=== PATIENT | male | born 1965 | race African-American/Black ===

== ENCOUNTER 2023-01-21 11:33 | Inpatient (IN) | payer MEDICAID, MEDICARE ==
[~2023-01-21] VITALS: Ht 175.3 cm; Wt 127.1 kg
[2023-01-21] MEDS ORDERED: SODIUM CHLORIDE 0.9% 1,000 ML IV ONE (12:00)
[2023-01-21 12:21] LABS: Basophils # (auto) 0 10 ^3/uL (0-0.2); Basophils % (auto) 0.8 % (0.0-2.0); Eosinophils # (auto) 0.2 10 ^3/uL (0-0.8); Eosinophils % (auto) 3.2 % (0.0-7.0); Hemoglobin 15.7 g/dL (13.5-17.5); Lymphocytes # (auto) 1.3 10 ^3/uL (0.4-5.4); Lymphocytes % (auto) 27.6 % (10.0-50.0); Mean Corpuscular Hgb Conc. 33.5 g/dL (32.0-36.0); Mean Corpuscular Volume 95.4 fL (80.0-100.0); Monocytes # (auto) 0.5 10 ^3/uL (0-1.3); Monocytes % (auto) 9.9 % (0.0-12.0); Neutrophils # (auto) 2.7 10 ^3/uL (1.6-8.6); Neutrophils % (auto) 58.5 % (37.0-80.0); Nucleated Red Blood Cells % 0.1 %; Red Blood Cells 4.92 10^6/uL (4.5-5.90); Red Cell Distribution Width 13.8 % (11.8-14.3); White Blood Cell 4.7 10^3/uL (4.4-10.8)
[2023-01-21 12:47] LABS: Albumin 3.3 g/dL (3.4-5.0); Calcium 8.8 mg/dL (8.5-10.1); Potassium 4.1 mmol/L (3.5-5.1)
[2023-01-21 12:50] LABS: BUN/Creatinine Ratio 12.8 (10.0-20.0); Bilirubin, Total 0.3 mg/dL (0.2-1.0); Total Protein 7.6 g/dL (6.4-8.2)
[2023-01-21] MEDS ORDERED: InsuLIN REG 1unit/0.01ml Soln (100units/ml) IV ONE (13:15)
[2023-01-21 14:51] LABS: Urine Bacteria NONE SEEN /hpf (None Seen); Urine Blood Negative /uL (Negative); Urine Clarity Clear (Clear); Urine Protein, UAD Negative (Negative); Urine Urobilinogen Normal (Negative); Urine WBC <1 /hpf (0 - 3); Urine pH 6.5 (5.0-8.0)
[2023-01-21 14:53] LABS: Urine Color Yellow (Yellow)
[2023-01-21] MEDS: SODIUM CHLORIDE 0.9% 1,000 ML IV SCH (16:15)
[2023-01-21] MEDS ORDERED: SODIUM CHLORIDE 0.9% 2,000 ML IV ONE (16:15)
[2023-01-21] MEDS ORDERED: DEXTROSE (50%) 50ML SYRG IV PRN ×2 (16:15→23:30)
[2023-01-21] MEDS ORDERED: ONDANSETRON HCL 4 MG/2 ML VIAL IV PRN (16:15)
[2023-01-21] MEDS ORDERED: INSULIN LANTUS (GLARGINE) 1 /0.01ml (100units/ml) SC ONE (16:15)
[2023-01-21] MEDS: InsuLIN R (HUMAN) 100 UNITS in SODIUM CHL 0.9% 99 ML IV SCH (16:15)
[2023-01-21 16:50] LABS: Magnesium 2.4 mg/dL (1.6-2.6); Phosphorus 3.3 mg/dL (2.5-4.90)
[2023-01-21 18:11] LABS: INR 1.02 (0.9-1.15); Prothrombin Time 10.7 sec (9.3-11.8)
[2023-01-21] MEDS: ACCU-CHEK COMFORT CURVE STRIP VI SCH ×2 (18:12→22:56)
[2023-01-21 22:33] LABS: BUN/Creatinine Ratio 12.5 (10.0-20.0); Calcium 8.4 mg/dL (8.5-10.1); Potassium 3.8 mmol/L (3.5-5.1)
[2023-01-21] MEDS: APIXABAN 5 MG TAB PO SCH (23:13)
[2023-01-22] MEDS: SODIUM CHLORIDE 0.9% 1,000 ML IV SCH ×3 (00:35→18:43)
[2023-01-22] MEDS: InsuLIN REG 1unit/0.01ml Soln (100units/ml) SC SCH ×5 (00:36→23:50)
[2023-01-22 04:30] VITALS: PULSE 62; RESP 18; O2SAT 98
[2023-01-22 04:53] LABS: Basophils # (auto) 0.1 10 ^3/uL (0-0.2); Basophils % (auto) 0.9 % (0.0-2.0); Eosinophils # (auto) 0.2 10 ^3/uL (0-0.8); Eosinophils % (auto) 3.4 % (0.0-7.0); Hematocrit 44.6 % (41.0-53.0); Hemoglobin 15.2 g/dL (13.5-17.5); Lymphocytes # (auto) 1.7 10 ^3/uL (0.4-5.4); Lymphocytes % (auto) 28.3 % (10.0-50.0); Mean Corpuscular Hemoglobin 32.2 pg (28.0-32.0); Mean Corpuscular Volume 94.8 fL (80.0-100.0); Monocytes # (auto) 0.6 10 ^3/uL (0-1.3); Monocytes % (auto) 10.8 % (0.0-12.0); Neutrophils # (auto) 3.4 10 ^3/uL (1.6-8.6); Neutrophils % (auto) 56.6 % (37.0-80.0); Nucleated Red Blood Cells % 0.3 %; Red Blood Cells 4.71 10^6/uL (4.5-5.90); Red Cell Distribution Width 13.7 % (11.8-14.3); White Blood Cell 5.9 10^3/uL (4.4-10.8)
[2023-01-22 05:06] LABS: Calcium 8.8 mg/dL (8.5-10.1); Potassium 3.6 mmol/L (3.5-5.1)
[2023-01-22 05:09] LABS: BUN/Creatinine Ratio 13.4 (10.0-20.0); Bilirubin, Total 0.4 mg/dL (0.2-1.0); Total Protein 6.9 g/dL (6.4-8.2)
[2023-01-22] MEDS: ACCU-CHEK COMFORT CURVE STRIP VI SCH ×4 (07:18→23:51)
[2023-01-22 11:08] LABS: Calcium 8.9 mg/dL (8.5-10.1); Potassium 3.8 mmol/L (3.5-5.1)
[2023-01-22 11:10] LABS: BUN/Creatinine Ratio 14.6 (10.0-20.0)
[2023-01-22 12:03] VITALS: BP 147/99; PULSE 61; RESP 18; TEMP 98.1; O2SAT 94
[2023-01-22 12:30] VITALS: RESP 18; O2SAT 94
[2023-01-22] MEDS: APIXABAN 5 MG TAB PO SCH ×2 (12:58→23:51)
[2023-01-22] MEDS: INSULIN LANTUS (GLARGINE) 1 /0.01ml (100units/ml) SC SCH (13:02)
[2023-01-22 16:00] VITALS: BP 145/81; PULSE 62; RESP 18; TEMP 98.1; O2SAT 98
[2023-01-22] MEDS: InsuLIN R (HUMAN) 100 UNITS in SODIUM CHL 0.9% 99 ML IV SCH (16:15)
[2023-01-22] MEDS: TAMSULOSIN HYDROCHLORIDE 0.4 MG CAP PO SCH (18:41)
[2023-01-22 20:00] VITALS: PULSE 61; RESP 18; O2SAT 97
[2023-01-22 22:00] VITALS: BP 133/80; PULSE 61; RESP 18; TEMP 98.4; O2SAT 97
[2023-01-22 22:36] LABS: Calcium 8.4 mg/dL (8.5-10.1); Potassium 3.8 mmol/L (3.5-5.1)
[2023-01-22] MEDS: MORPHINE SULFATE INJ 2 MG/ml SYRG IV PRN (23:50)
[2023-01-23] VITALS (8 sets, daily range): BP systolic 102–160; BP diastolic 59–85; PULSE 60–69; RESP 17–20; TEMP 97.4–98.6; O2SAT 93–98
[2023-01-23] MEDS ORDERED: MELATONIN 5 MG TAB PO ONE (02:15)
[2023-01-23] MEDS ORDERED: CHOL20007 OR (03:56)
[2023-01-23] MEDS ORDERED: APIX5TAB PO (03:56)
[2023-01-23] MEDS ORDERED: ALOG2.5T PO (03:56)
[2023-01-23] MEDS ORDERED: INSU1INJ3 SC (03:56)
[2023-01-23] MEDS ORDERED: ESCI1TAB36 PO (03:56)
[2023-01-23] MEDS ORDERED: GABA-1308 PO (03:56)
[2023-01-23] MEDS ORDERED: ATOR20TA50 PO (03:56)
[2023-01-23] MEDS ORDERED: HYDR25TA4 PO (03:56)
[2023-01-23] MEDS ORDERED: TAMS0.4C36 PO (03:56)
[2023-01-23] MEDS ORDERED: EMPA1TAB3 PO (03:56)
[2023-01-23 05:00] LABS: Basophils # (auto) 0.1 10 ^3/uL (0-0.2); Basophils % (auto) 2.9 % (0.0-2.0); Eosinophils # (auto) 0.2 10 ^3/uL (0-0.8); Eosinophils % (auto) 4.9 % (0.0-7.0); Hematocrit 45.7 % (41.0-53.0); Hemoglobin 15.3 g/dL (13.5-17.5); Lymphocytes # (auto) 1.5 10 ^3/uL (0.4-5.4); Lymphocytes % (auto) 29.8 % (10.0-50.0); Mean Corpuscular Hemoglobin 31.6 pg (28.0-32.0); Mean Corpuscular Hgb Conc. 33.4 g/dL (32.0-36.0); Mean Corpuscular Volume 94.5 fL (80.0-100.0); Monocytes # (auto) 0.5 10 ^3/uL (0-1.3); Monocytes % (auto) 9.5 % (0.0-12.0); Neutrophils # (auto) 2.7 10 ^3/uL (1.6-8.6); Neutrophils % (auto) 52.9 % (37.0-80.0); Nucleated Red Blood Cells % 0.1 %; Red Blood Cells 4.84 10^6/uL (4.5-5.90); Red Cell Distribution Width 13.9 % (11.8-14.3); White Blood Cell 5.1 10^3/uL (4.4-10.8)
[2023-01-23 05:21] LABS: Potassium 4.2 mmol/L (3.5-5.1)
[2023-01-23 05:25] LABS: BUN/Creatinine Ratio 15.2 (10.0-20.0)
[2023-01-23] MEDS: ACCU-CHEK COMFORT CURVE STRIP VI SCH ×4 (06:49→21:53)
[2023-01-23] MEDS: InsuLIN REG 1unit/0.01ml Soln (100units/ml) SC SCH ×4 (06:49→21:50)
[2023-01-23] MEDS: FLUoxetine HCL 10 MG CAP PO SCH (09:17)
[2023-01-23] MEDS: APIXABAN 5 MG TAB PO SCH ×2 (09:17→21:04)
[2023-01-23] MEDS: INSULIN LANTUS (GLARGINE) 1 /0.01ml (100units/ml) SC SCH (09:26)
[2023-01-23 10:33] LABS: BUN/Creatinine Ratio 12.7 (10.0-20.0); Calcium 8.6 mg/dL (8.5-10.1); Potassium 3.9 mmol/L (3.5-5.1)
[2023-01-23] MEDS: SODIUM CHLORIDE 0.9% 1,000 ML IV SCH ×2 (11:16→19:03)
[2023-01-23] MEDS: MORPHINE SULFATE INJ 2 MG/ml SYRG IV PRN ×2 (13:46→21:05)
[2023-01-23] MEDS: InsuLIN R (HUMAN) 100 UNITS in SODIUM CHL 0.9% 99 ML IV SCH (15:52)
[2023-01-23] MEDS: TAMSULOSIN HYDROCHLORIDE 0.4 MG CAP PO SCH (17:05)
[2023-01-24] MEDS: SODIUM CHLORIDE 0.9% 1,000 ML IV SCH ×3 (02:32→17:59)
[2023-01-24 04:56] VITALS: BP 147/81; PULSE 63; RESP 18; TEMP 97.8; O2SAT 97
[2023-01-24] MEDS: ACCU-CHEK COMFORT CURVE STRIP VI SCH ×4 (06:29→21:13)
[2023-01-24] MEDS: InsuLIN REG 1unit/0.01ml Soln (100units/ml) SC SCH ×4 (06:32→21:12)
[2023-01-24 07:07] LABS: Basophils # (auto) 0.1 10 ^3/uL (0-0.2); Basophils % (auto) 1.1 % (0.0-2.0); Eosinophils # (auto) 0.2 10 ^3/uL (0-0.8); Hematocrit 43.4 % (41.0-53.0); Hemoglobin 14.8 g/dL (13.5-17.5); Lymphocytes # (auto) 1.5 10 ^3/uL (0.4-5.4); Lymphocytes % (auto) 26.9 % (10.0-50.0); Mean Corpuscular Hemoglobin 32.7 pg (28.0-32.0); Mean Corpuscular Hgb Conc. 34.1 g/dL (32.0-36.0); Mean Corpuscular Volume 95.9 fL (80.0-100.0); Monocytes # (auto) 0.6 10 ^3/uL (0-1.3); Monocytes % (auto) 9.7 % (0.0-12.0); Neutrophils # (auto) 3.3 10 ^3/uL (1.6-8.6); Neutrophils % (auto) 58.3 % (37.0-80.0); Nucleated Red Blood Cells % 0.2 %; Red Blood Cells 4.52 10^6/uL (4.5-5.90); Red Cell Distribution Width 13.8 % (11.8-14.3); White Blood Cell 5.7 10^3/uL (4.4-10.8)
[2023-01-24 07:29] LABS: BUN/Creatinine Ratio 13.4 (10.0-20.0); Calcium 8.3 mg/dL (8.5-10.1); Potassium 4.3 mmol/L (3.5-5.1)
[2023-01-24 08:00] VITALS: BP 141/80; PULSE 66; RESP 18; TEMP 97.9; O2SAT 96
[2023-01-24] MEDS: APIXABAN 5 MG TAB PO SCH ×2 (10:21→21:13)
[2023-01-24] MEDS: FLUoxetine HCL 10 MG CAP PO SCH (10:21)
[2023-01-24] MEDS: INSULIN LANTUS (GLARGINE) 1 /0.01ml (100units/ml) SC SCH ×2 (10:23→21:12)
[2023-01-24 12:00] VITALS: BP 145/83; PULSE 68; RESP 20; TEMP 98; O2SAT 97
[2023-01-24 13:46] LABS: Urine Bacteria NONE SEEN /hpf (None Seen); Urine Blood Negative /uL (Negative); Urine Clarity Clear (Clear); Urine Color Colorless (Yellow); Urine Protein, UAD Negative (Negative); Urine Specific Gravity 1.011 (1.001-1.035); Urine Urobilinogen Normal (Negative); Urine WBC <1 /hpf (0 - 3)
[2023-01-24 16:00] VITALS: BP 144/65; PULSE 83; RESP 18; TEMP 97.8; O2SAT 94
[2023-01-24] MEDS: InsuLIN R (HUMAN) 100 UNITS in SODIUM CHL 0.9% 99 ML IV SCH (16:15)
[2023-01-24] MEDS: DOCUSATE SOD 100 MG CAP PO SCH (16:44)
[2023-01-24] MEDS: TAMSULOSIN HYDROCHLORIDE 0.4 MG CAP PO SCH (16:44)
[2023-01-24] MEDS: MORPHINE SULFATE INJ 2 MG/ml SYRG IV PRN ×2 (16:47→20:52)
[2023-01-24 20:02] VITALS: RESP 18
[2023-01-24 22:00] VITALS: BP 124/67; PULSE 60; RESP 16; TEMP 98.4; O2SAT 97
[2023-01-25] MEDS: SODIUM CHLORIDE 0.9% 1,000 ML IV SCH ×2 (03:52→11:55)
[2023-01-25 05:00] VITALS: BP 141/73; PULSE 62; RESP 14; TEMP 98.4; O2SAT 94
[2023-01-25] MEDS: ACCU-CHEK COMFORT CURVE STRIP VI SCH ×3 (06:22→17:00)
[2023-01-25] MEDS: InsuLIN REG 1unit/0.01ml Soln (100units/ml) SC SCH ×3 (06:23→17:00)
[2023-01-25 06:25] LABS: Basophils # (auto) 0.1 10 ^3/uL (0-0.2); Eosinophils # (auto) 0.3 10 ^3/uL (0-0.8); Eosinophils % (auto) 4.4 % (0.0-7.0); Hematocrit 44.1 % (41.0-53.0); Hemoglobin 14.6 g/dL (13.5-17.5); Lymphocytes # (auto) 1.5 10 ^3/uL (0.4-5.4); Lymphocytes % (auto) 26.7 % (10.0-50.0); Mean Corpuscular Hgb Conc. 33.2 g/dL (32.0-36.0); Mean Corpuscular Volume 96.5 fL (80.0-100.0); Monocytes # (auto) 0.7 10 ^3/uL (0-1.3); Monocytes % (auto) 12.4 % (0.0-12.0); Neutrophils # (auto) 3.2 10 ^3/uL (1.6-8.6); Neutrophils % (auto) 55.5 % (37.0-80.0); Nucleated Red Blood Cells % 0.1 %; Red Blood Cells 4.57 10^6/uL (4.5-5.90); White Blood Cell 5.7 10^3/uL (4.4-10.8)
[2023-01-25 06:48] LABS: BUN/Creatinine Ratio 12.9 (10.0-20.0); Calcium 8.3 mg/dL (8.5-10.1); Potassium 3.4 mmol/L (3.5-5.1)
[2023-01-25 08:00] VITALS: RESP 18
[2023-01-25] MEDS ORDERED: POTASSIUM EFFERVESENT TAB 25 MEQ PO ONE (08:45)
[2023-01-25] MEDS: APIXABAN 5 MG TAB PO SCH (08:52)
[2023-01-25] MEDS: DOCUSATE SOD 100 MG CAP PO SCH (08:52)
[2023-01-25] MEDS: FLUoxetine HCL 10 MG CAP PO SCH (08:52)
[2023-01-25] MEDS: INSULIN LANTUS (GLARGINE) 1 /0.01ml (100units/ml) SC SCH (08:58)
[2023-01-25 09:16] VITALS: BP 158/81; PULSE 65; RESP 18; TEMP 97.5; O2SAT 95
[2023-01-25 13:10] VITALS: BP 133/80; PULSE 51; RESP 18; TEMP 97.1; O2SAT 95
[2023-01-25] MEDS ORDERED: INSU1INJ3 SC (15:26)
[2023-01-25] MEDS ORDERED: DOCUSATE SOD 100 MG CAP PO SCH (17:00)
== END 2023-01-25 17:20 | disposition home or self-care (01) | DRG 420 ==
LOC: ER 11:33 → OVERFLOW 15:17 → WEST WING 01-22 11:28
PROVIDERS: ADMIT Internal Medicine; ATTEND Student in an Organized Health Care Education/Training Program
DX: E11.65 Type 2 diabetes mellitus with hyperglycemia (principal); E44.1 Mild protein-calorie malnutrition; E11.22 Type 2 diabetes mellitus with diabetic chronic kidney disease; I82.503 Chronic embolism and thrombosis of unspecified deep veins of lower extremity, bilateral; Z68.41 Body mass index [BMI] 40.0-44.9, adult; N40.0 Benign prostatic hyperplasia without lower urinary tract symptoms; R82.4 Acetonuria; N18.9 Chronic kidney disease, unspecified; H54.61 Unqualified visual loss, right eye, normal vision left eye; F32.A Depression, unspecified; F17.210 Nicotine dependence, cigarettes, uncomplicated; E66.01 Morbid (severe) obesity due to excess calories; K59.00 Constipation, unspecified; Z79.01 Long term (current) use of anticoagulants; Z91.199 Patient's noncompliance with other medical treatment and regimen due to unspecified reason
CPT/HCPCS: 36415; 80048; 80053; 81001; 82010; 82962; 83735; 83930; 84100; 85025; 85610; 96361; 96374; G0378; J1815; J2405

== ENCOUNTER 2024-05-23 11:41 | Inpatient (IN) | payer OTHER, MEDICAID ==
[~2024-05-23] VITALS: Ht 175.3 cm; Wt 131.4 kg
[~2024-05-23 11:41] MED LIST: ALOG2.5T PO; APIX5TAB PO; ATOR20TA50 PO; CHOL20007 OR; EMPA1TAB3 PO; ESCI1TAB36 PO; GABA-1308 PO; HYDR25TA4 PO; INSU1INJ3 SC; TAMS0.4C39 PO
--- NOTE | 2024-05-23 12:40 | ED.PDOC ---
History of Present Illness HPI Comments 58 y/o M presents with c/o right-sided numbness, generalized weakness, cough, and HTN, today. Patient is a poor historian and endorses on recent, unprovoked onset of symptoms in addition to noticing his blood pressure being elevated at home, today. Patient comments also medication refill inquiry regarding concern for his blood glucose level and his insulin medication, that he states on running out of. Patient denies having any chest pain, shortness of breath, weakness, dizziness, or other associated symptoms or modifies at this time. Chief Complaint: Dizziness Time Seen by MD: 12:10 Primary Care Provider: ALVARADO Reviewed Notes: Nurses Notes, Medications, Allergies Allergies: Coded Allergies: No Known Drug Allergy (Verified Allergy, Unknown, 01/21/23) Home Meds Active Scripts Insulin NPH Isophane & Reg (Hu (Humulin 70/30 Kwikpen (70-30) 100 Unit/ml) 1 Inj Inj, 20 UNITS SC BID for 30 Days, #60 INJ 5 Refills Prov:IZABELLA ARCOS MD 01/25/23 Reported Medications Cholecalciferol (VITAMIN D3) 2,000 Unit Tab, 2000 UNIT OR DAILY, TAB 01/23/23 Apixaban Base (ELIQUIS) 5 Mg Tab, 5 MG PO BID, TAB 01/23/23 Gabapentin (Gabapentin) 100 Mg Cap, 100 MG PO TID 01/23/23 Empagliflozin (Jardiance) 25 Mg Tab, 25 MG PO DAILY, TAB 01/23/23 Hydrochlorothiazide (Hydrochlorothiazide) 25 Mg Tab, 25 MG PO DAILY, MG 01/23/23 Atorvastatin Calcium (ATORVASTATIN CALCIUM) 20 Mg Tab, 20 MG PO DAILY, TAB 01/23/23 Tamsulosin Hcl (Tamsulosin Hcl) 0.4 Mg Cap, 0.4 MG PO DAILY for 30 Days, MG 01/23/23 Alogliptin Benzoate (Alogliptin) 12.5 Mg Tab, 12.5 MG PO BID, TAB 01/23/23 Escitalopram Oxalate (ESCITALOPRAM OXALATE) 10 Mg Tab, 10 MG PO DAILY, TAB 01/23/23 Information Source: Patient Mode of Arrival: Ambulatory Severity: Moderate Timing: Days Duration: Since onset Prehospital treatment: None Past Medical History PAST MEDICAL HISTORY: DM, HTN Past Medical History (Other): morbid obesity Surgical History: Denies all surgeries Family History Family History: Reviewed,noncontributory to illness, Family hx of heart sindhu Social History Smoker: Cigarettes Alcohol: Occasionally Drugs: Marijuana Lives In: Home Respiratory: reports: cough Neurological: reports: numbness (right-sided ), weakness All Other Systems: Reviewed and Negative (negative unless otherwise stated in HPI) Physical Exam General Appearance: Moderate Distress, Obese HEENT: Normal ENT Inspection, Pharynx Normal, TMs Normal Neck: Full Range of Motion, Non-Tender, Normal, Normal Inspection Respiratory: Other (Coarse breath sounds) Cardiovascular: No Edema, No JVD, No Murmur, No Gallop, Normal Peripheral Pulses, Regular Rate/Rhythm Breast Exam: Deferred Gastrointestinal: No Organomegaly, Non Tender, No Pulsatile Mass, Normal Bowel Sounds, Soft Genitalia: Deferred Pelvic: Deferred Rectal: Deferred Extremities: Pedal edema Musculoskeletal : Apperance: Normal Neurologic: Alert Cerebellar Function: NOT DONE Reflexes: NOT DONE Skin: Normal Color Peripheral Pulses: 3+ Radial (R), 3+ Radial (L) Lymphatic: No Adenopathy Was a procedure done? Was a procedure done?: No Differential Dx Considerations may include: uncontrolled HTN, inappropriate medication dosage, electrolyte imbalance, dehydration X-Ray, Labs, Meds, VS Vital Signs Date Time Temp Pulse Resp B/P (MAP) Pulse Ox O2 Delivery O2 Flow Rate FiO2 05/23/24 12:28 99.1 116 18 140/85 (103) 94 05/23/24 12:18 117 Lab Test 05/23/24 13:09 05/23/24 12:18 05/23/24 12:17 05/23/24 12:16 Range/Units Urine Color Light-yellow Yellow Urine Clarity Clear Clear Urine pH 5.5 5.0-9.0 Urine Specific [place] 1.032 1.001-1.035 Urine Protein Trace H Negative Urine Ketones Trace Negative Urine Blood Negative Negative /uL Urine Nitrite Negative Negative Urine Bilirubin Negative Negative Urine Urobilinogen Normal Negative mg/dL Urine Leukocyte Esterase Negative Negative /uL Urine RBC 1 0 - 3 /hpf Urine WBC <1 0 - 3 /hpf Urine Squamous Epithelial Cells Few <5 /hpf Urine Bacteria None seen None Seen /hpf Urine Glucose 4+ H Normal mg/dL POC Glucose 482 *H 451 *H 70-106 mg/dl White Blood Count 6.2 4.4-10.8 10^3/uL Red Blood Count 5.17 4.5-5.90 10^6/uL Hemoglobin 17.0 13.5-17.5 g/dL Hematocrit 49.3 41.0-53.0 % Mean Corpuscular Volume 95.4 80.0-100.0 fL Mean Corpuscular Hemoglobin 32.8 H 28.0-32.0 pg Mean Corpuscular Hemoglobin Concent 34.4 32.0-36.0 g/dL Red Cell Distribution Width 14.6 H 11.8-14.3 % Platelet Count 258 140-450 10^3/uL Mean Platelet Volume 8.5 6.9-10.8 fL Neutrophils (%) (Auto) 60.7 37.0-80.0 % Lymphocytes (%) (Auto) 18.7 10.0-50.0 % Monocytes (%) (Auto) 16.4 H 0.0-12.0 % Eosinophils (%) (Auto) 3.4 0.0-7.0 % Basophils (%) (Auto) 0.8 0.0-2.0 % Neutrophils # (Auto) 3.7 1.6-8.6 10 ^3/uL Lymphocytes # (Auto) 1.2 0.4-5.4 10 ^3/uL Monocytes # (Auto) 1.0 0-1.3 10 ^3/uL Eosinophils # (Auto) 0.2 0-0.8 10 ^3/uL Basophils # (Auto) 0 0-0.2 10 ^3/uL Nucleated Red Blood Cells 0.1 % Sodium Level 133 L 136-145 mmol/L Potassium Level 4.5 3.5-5.1 mmol/L Chloride Level 99 98-107 mmol/L Carbon Dioxide Level 26 20-31 mmol/L Anion Gap 8 5-15 Blood Urea Nitrogen 14 9-23 mg/dL Creatinine 1.63 H 0.700-1.30 mg/dL Glomerular Filtration Rate Calc 48 >90 mL/min BUN/Creatinine Ratio 8.6 L 10.0-20.0 Serum Glucose 472 *H 74-106 mg/dL Calcium Level 10.1 8.7-10.4 mg/dL Troponin I High Sensitivity 10 </=54 ng/L B-Type Natriuretic Peptide 40.57 0-100 pg/mL Patient alert. Complaining of right-sided weakness. Vitals stable. Answering all questions. Blood sugar elevated. Establish intravenous access. Was given fluids. He is tachycardic. EKG reviewed does not show any acute changes. Was given insulin. Reviewed his previous visit. Explained to the patient. Continue cardiac monitoring. [facility] [id number] [facility] [address] Ph: [phone] DIAGNOSTIC IMAGING Diagnostic Imaging Report : [id number] Signed PATIENT: AILEEN ARAMBULA ACCT: [id number] UNIT: [id number] : 1965 LOC: ER ROOM / BED: / AGE / SEX: 58 / M ADM STATUS: REG ER SERVICE 12 ORDERING PHYSICIAN: JOSIAH ZELAYA MD PROCEDURE(s): CXRP - CHEST PORTABLE REASON: sob ORDER NUMBER(s): [id number], ACCESSION NUMBER(s): [id number] EXAM: XY CHEST PORTABLE Indication: sob Technique: Single frontal view of the chest was obtained Comparison: None FINDINGS: Lines and Tubes: None Lungs: No focal consolidation. Pleura: No effusion. No pneumothorax. Cardiomediastinal contours: Unremarkable Bones: No acute osseous abnormality. IMPRESSION: No acute cardiopulmonary disease. ATED BY: JOEY AMES MD DICTATED DATE/TIME: 05/23/241240 SIGNED BY: JOEY AMES MD SIGNED DATE/TIME: 05/23/241240 CC: Time of 1ST Reevaluation: 12:40 Reevaluation 1ST: Unchanged Patient Education/Counseling: Diagnosis, Treatment Family Education/Counseling: No Family Present Departure 1 Departure Time of Disposition: 13:21 Impression: Primary Impression: Generalized weakness Additional Impression: Uncontrolled diabetes mellitus Qualified Codes: E13.65 - Other specified diabetes mellitus with hypergly cemia Disposition: ADMITTED INPATIENT Admit to: Med Surg Condition: Guarded Critical Care Note Critical Care Time?: Yes (45 min-critical care time only) Stability Stability form required: No Heart Score Heart Score: Heart Score Response (Comments) Value History Slightly Suspicious 0 EKG Normal 0 Age 45-64 1 Risk Factors >3 or Hx ASHD 2 Troponin Normal limit 0 Total 3 I personally scribed for JOSIAH ZELAYA MD ([email or web address]) on 05/23/24 at 12:40. Electronically submitted by Pedro Valdez ([email or web address]). I personally scribed for JOSIAH ZELAYA MD ([email or web address]) on 05/23/24 at 13:29. Electronically submitted by Pedro Valdez ([email or web address]). I personally scribed for JOSIAH ZELAYA MD ([email or web address]) on 05/23/24 at 14:29. Electronically submitted by Pedro Valdez ([email or web address]). I personally scribed for JOSIAH ZELAYA MD ([email or web address]) on 05/23/24 at 14:29. Electronically submitted by Pedro Valdez ([email or web address]). I personally scribed for JOSIAH ZELAYA MD ([email or web address]) on 05/23/24 at 16:41. Electronically submitted by Blanca Leong ([email or web address]). JOSIAH ZELAYA MD May 23, 2024 12:40
[2024-05-23 12:42] LABS: Basophils # (auto) 0 10 ^3/uL (0-0.2); Basophils % (auto) 0.8 % (0.0-2.0); Eosinophils # (auto) 0.2 10 ^3/uL (0-0.8); Eosinophils % (auto) 3.4 % (0.0-7.0); Hematocrit 49.3 % (41.0-53.0); Lymphocytes # (auto) 1.2 10 ^3/uL (0.4-5.4); Lymphocytes % (auto) 18.7 % (10.0-50.0); Mean Corpuscular Hemoglobin 32.8 pg (28.0-32.0); Mean Corpuscular Hgb Conc. 34.4 g/dL (32.0-36.0); Mean Corpuscular Volume 95.4 fL (80.0-100.0); Monocytes % (auto) 16.4 % (0.0-12.0); Neutrophils # (auto) 3.7 10 ^3/uL (1.6-8.6); Neutrophils % (auto) 60.7 % (37.0-80.0); Nucleated Red Blood Cells % 0.1 %; Platelet Count (auto) 258 10^3/uL (140-450); Red Blood Cells 5.17 10^6/uL (4.5-5.90); Red Cell Distribution Width 14.6 % (11.8-14.3); White Blood Cell 6.2 10^3/uL (4.4-10.8)
--- NOTE | 2024-05-23 12:43 | DVH ---
EXAM: XY CHEST PORTABLE Indication: sob Technique: Single frontal view of the chest was obtained Comparison: None FINDINGS: Lines and Tubes: None Lungs: No focal consolidation. Pleura: No effusion. No pneumothorax. Cardiomediastinal contours: Unremarkable Bones: No acute osseous abnormality. IMPRESSION: No acute cardiopulmonary disease.
[2024-05-23 12:45] LABS: Chloride 99 mmol/L (98-107); Potassium 4.5 mmol/L (3.5-5.1)
[2024-05-23 12:46] LABS: Anion Gap 8 (5-15); Calcium 10.1 mg/dL (8.7-10.4); Carbon Dioxide 26 mmol/L (20-31)
[2024-05-23 12:51] LABS: BUN/Creatinine Ratio 8.6 (10.0-20.0); Blood Urea Nitrogen 14 mg/dL (9-23)
[2024-05-23 12:55] LABS: Sodium 133 mmol/L (136-145)
[2024-05-23 12:56] LABS: Glucose 472 mg/dL (74-106)
[2024-05-23 14:03] LABS: Urine Bacteria None Seen /hpf (None Seen)
[2024-05-23 14:19] LABS: Urine Blood Negative /uL (Negative); Urine Clarity Clear (Clear); Urine Color Light-Yellow (Yellow); Urine Protein, UAD TRACE (Negative); Urine Specific Gravity 1.032 (1.001-1.035); Urine Urobilinogen Normal (Negative); Urine WBC <1 /hpf (0 - 3); Urine pH 5.5 (5.0-9.0)
--- NOTE | 2024-05-23 20:59 | DVH ---
EXAM: CT HEAD WITHOUT CONTRAST INDICATION: right side numbness, generalized weakness TECHNIQUE: CT of the head without intravenous contrast. Radiation Dose Information: CT Dose: CTDI volume is 58.62 mGy. Dose-length product is 939.71 mGy*cm The dose indicators for CT are the volume Computed Tomography (CT) Dose Index (CTDIvol) and the Dose Length Product (DLP), and are measured in units of mGy and mGy-cm, respectively. These indicators are not patient dose, but values generated from the CT scanner acquisition factors. The report includes radiation exposure data for exposures received during this examination. COMPARISON: None FINDINGS: There is no evidence of acute intracranial hemorrhage, extra-axial collection, mass effect, midline s hift, herniation or hydrocephalus. The ventricles, sulci and cisterns are age appropriate. The anderson-white differentiation is intact. Patchy periventricular and subcortical white matter hypoattenuation is nonspecific but may be related to small vessel ischemic disease. Small amount of fluid noted posteriorly in both maxillary sinuses. There is also mucosal thickening i n the ethmoid sinuses. and mastoid air cells are clear. The surrounding soft tissues and osseous structures are unremarkable. IMPRESSION: 1. No acute intracranial hemorrhage. 2. No CT findings of territorial ischemia.
[2024-05-23] MEDS ORDERED: DEXTROSE (50%) 50ML SYRG IV PRN (21:15)
[2024-05-23 22:09] LABS: Chloride 101 mmol/L (98-107); Potassium 3.8 mmol/L (3.5-5.1)
[2024-05-23 22:10] LABS: Anion Gap 5 (5-15); Calcium 10.3 mg/dL (8.7-10.4); Carbon Dioxide 27 mmol/L (20-31)
[2024-05-23 22:15] LABS: BUN/Creatinine Ratio 7.9 (10.0-20.0); Blood Urea Nitrogen 12 mg/dL (9-23)
[2024-05-23 22:21] LABS: Glucose 345 mg/dL (74-106); Sodium 133 mmol/L (136-145)
[2024-05-23] MEDS ORDERED: ONDANSETRON HCL 4 MG/2 ML VIAL IV PRN (22:30)
[2024-05-23] MEDS ORDERED: ACETAMINOPHEN 325 MG TAB PO PRN (22:30)
[2024-05-23] MEDS: SODIUM CHLORIDE 0.9% 1,000 ML IV ONE (23:01)
[2024-05-23] MEDS: ACCU-CHEK COMFORT CURVE STRIP VI SCH (23:15)
[2024-05-23] MEDS: InsuLIN REG 1unit/0.01ml Soln (100units/ml) SC SCH (23:16)
[2024-05-24] VITALS (8 sets, daily range): BP systolic 115–154; BP diastolic 69–80; PULSE 69–90; RESP 16–20; TEMP 97.4–98.7; O2SAT 90–97
--- NOTE | 2024-05-24 00:32 | DVHHP2 ---
Admitting Diagnosis: SIMONE, generalized weakness, right upper extremity numbness History of Present Illness History Source: Patient Exam Limitations: No limitations HPI Mr. Sanford Sam is a 58 yo male with known history of DM, hypertension, neuropathy who presents with a chief complaint of right upper extremity numbness, generalized weakness, and a cough. Patient reports he was having dizziness along with right sided upper extremity numbness with elevated uncontrolled glucose levels at home. Patient states "I just wasn't feeling my self, I was feeling loopy". Patient reports chest pain with his cough denies any dyspnea, fevers, chills, nausea, vomiting, headaches, blurry vision. Patient admitted for further evaluation. Home Meds Active Scripts Insulin NPH Isophane & Reg (Hu (Humulin 70/30 Kwikpen (70-30) 100 Unit/ml) 1 Inj Inj, 20 UNITS SC BID for 30 Days, #60 INJ 5 Refills Prov:IZABELLA ARCOS MD 01/25/23 Reported Medications Gabapentin (Once-Daily) (Gabapentin) 300 Mg Tab, 300 MG PO TID, TAB 05/24/24 Cholecalciferol (VITAMIN D3) 2,000 Unit Tab, 2000 UNIT OR DAILY, TAB 01/23/23 Apixaban Base (ELIQUIS) 5 Mg Tab, 5 MG PO BID, TAB 01/23/23 Empagliflozin (Jardiance) 25 Mg Tab, 25 MG PO DAILY, TAB 01/23/23 Hydrochlorothiazide (Hydrochlorothiazide) 25 Mg Tab, 25 MG PO DAILY, MG 01/23/23 Atorvastatin Calcium (ATORVASTATIN CALCIUM) 20 Mg Tab, 20 MG PO DAILY, TAB 01/23/23 Tamsulosin Hcl (Tamsulosin Hcl) 0.4 Mg Cap, 0.4 MG PO DAILY for 30 Days, MG 01/23/23 Alogliptin Benzoate (Alogliptin) 12.5 Mg Tab, 12.5 MG PO BID, TAB 01/23/23 Escitalopram Oxalate (ESCITALOPRAM OXALATE) 10 Mg Tab, 10 MG PO DAILY, TAB 01/23/23 Past Medical History Cardiac: HTN Pulmonary: No pertinent Hx Central Nervous System: Periperal neuropathy GI: No pertinent Hx Hemotology/Oncology: No pertinent Hx Hepatobiliary: No pertinent Hx Psychiatric: No pertinent Hx Musculoskeletal: No pertinent Hx Rheumotologic: No pertinent Hx Infectious Disease: No peritnent Hx ENT: No pertinent Hx Renal/: No pertinent Hx Endocrine: NIDDM Dermatology: No pertinent Hx Patient Family History: Heart failure G8 MOTHER G8 BROTHER Hypertension G8 BROTHER Smoker: No Hx (Negative) Alocohol: None Drugs: None Lives with: With family Domestic Violence: Neg Review of Systems Constitutional: No symptom reported Ears, Nose, & Throat: No symptom reported Eyes: No symptom reported Pulmonary/Respiratory: No symptom reported Cardiovascular: No symptom reported Gastrointestinal: No symptom reported Genitourinary: No symptom reported Musculoskeletal: Other (right upper hand numbness) Skin: No symptom reported Psychiatric: No symptom reported Endocrine: No symptom reported Hemotologic/Lymphatic: No symptom reported All Other Systems Dizziness H&P Exam Vital Signs Vital Signs Date Time Temp Pulse Resp B/P (MAP) Pulse Ox O2 Delivery O2 Flow Rate FiO2 05/23/24 22:52 98.9 77 16 136/79 (98) 96 98.9 05/23/24 22:50 Room Air* 0 21 General Appeara: Well developed, Well nourished, Normal Appearance Head Exam: Normal inspection Neck Exam: Normal inspection, Non-tender, Normal alignment Eye Exam: bilateral eye Normal inspection, bilateral eye PERRL, bilateral eye EOMI Ear Exam: bilateral ear Auricle normal Nasal Exam: Normal inspection Mouth: Normal Inspection Pulmonary/Respiratory: Normal inspection, Normal breath sounds, Chest non- tender, Lungs clear Cardiovascular/Chest: Normal inspection, Regular rate, Normal Rhythm Peripheral Pulses: 2+ dorsalis pedis (R), 2+ dorsalis pedis (L), 2+ Radial (R), 2+ Radial (L) Abdominal Exam: Normal bowel sounds, Soft Rectal Exam: Deferred Hand Exam: Normal inspection, Non-tender, Normal ROM 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 Exam: Normal hearing, Normal speech, PERRL Motor/Sensory: Normal sensory function, Normal motor function Neuro/Mental St: Alert, Oriented Appearance: Appropriate appearance, Appropriate insight Eye contact/ Speech: Cooperative, Good eye contact, Normal speech Thoughts/Psych: Normal thought pattern Coordination/Gait: Normal finger->nose Skin Exam: Normal inspection, Normal color, Warm/dry Labs/Xrays Labs Test 05/23/24 23:10 05/23/24 21:32 05/23/24 13:09 05/23/24 12:17 Range/Units POC Glucose 348 H 70-106 mg/dl Sodium Level 133 L 136-145 mmol/L Potassium Level 3.8 3.5-5.1 mmol/L Chloride Level 101 98-107 mmol/L Carbon Dioxide Level 27 20-31 mmol/L Anion Gap 5 5-15 Blood Urea Nitrogen 12 9-23 mg/dL Creatinine 1.51 H 0.700-1.30 mg/dL Glomerular Filtration Rate Calc 53 >90 mL/min BUN/Creatinine Ratio 7.9 L 10.0-20.0 Serum Glucose 345 #H 74-106 mg/dL Calcium Level 10.3 8.7-10.4 mg/dL Urine Color Light-yellow Yellow Urine Clarity Clear Clear Urine pH 5.5 5.0-9.0 Urine Specific [place] 1.032 1.001-1.035 Urine Protein Trace H Negative Urine Ketones Trace Negative Urine Blood Negative Negative /uL Urine Nitrite Negative Negative Urine Bilirubin Negative Negative Urine Urobilinogen Normal Negative mg/dL Urine Leukocyte Esterase Negative Negative /uL Urine RBC 1 0 - 3 /hpf Urine WBC <1 0 - 3 /hpf Urine Squamous Epithelial Cells Few <5 /hpf Urine Bacteria None seen None Seen /hpf Urine Glucose 4+ H Normal mg/dL White Blood Count 6.2 4.4-10.8 10^3/uL Red Blood Count 5.17 4.5-5.90 10^6/uL Hemoglobin 17.0 13.5-17.5 g/dL Hematocrit 49.3 41.0-53.0 % Mean Corpuscular Volume 95.4 80.0-100.0 fL Mean Corpuscular Hemoglobin 32.8 H 28.0-32.0 pg Mean Corpuscular Hemoglobin Concent 34.4 32.0-36.0 g/dL Red Cell Distribution Width 14.6 H 11.8-14.3 % Platelet Count 258 140-450 10^3/uL Mean Platelet Volume 8.5 6.9-10.8 fL Neutrophils (%) (Auto) 60.7 37.0-80.0 % Lymphocytes (%) (Auto) 18.7 10.0-50.0 % Monocytes (%) (Auto) 16.4 H 0.0-12.0 % Eosinophils (%) (Auto) 3.4 0.0-7.0 % Basophils (%) (Auto) 0.8 0.0-2.0 % Neutrophils # (Auto) 3.7 1.6-8.6 10 ^3/uL Lymphocytes # (Auto) 1.2 0.4-5.4 10 ^3/uL Monocytes # (Auto) 1.0 0-1.3 10 ^3/uL Eosinophils # (Auto) 0.2 0-0.8 10 ^3/uL Basophils # (Auto) 0 0-0.2 10 ^3/uL Nucleated Red Blood Cells 0.1 % Troponin I High Sensitivity 10 </=54 ng/L B-Type Natriuretic Peptide 40.57 0-100 pg/mL Assessment/Plan Problem List: (1) Right upper extremity numbness (2) Generalized weakness (3) Uncontrolled diabetes mellitus (4) Hyperglycemia Plan 58 yo male with known history of DM, hypertension, neuropathy presents to the hospital with right upper extremity numbness, generalized weakness, cough. Patient found to have 1. Acute Kidney Injury 2. DM with uncontrolled hyperglycemia 3. Dizziness 4. TIA Admit Telemetry cardiology consultation , 2d echo, ASA, statin MRI Brain wo IV fluids Normal saline Glucose monitoring ac & hs coverage with insulin sliding scale Monitor BMP A1C , lipid panel Orthostatic blood pressures Discussed all above with patient who verbalizes agreement and understanding of care plan. All questions were answered. Discussed assessment and care plan with supervising MD. Plan discussed with: Patient, Other Code Visit Code Visit Total Time (mins): 45 Additional Comments Additional Comments Additional Comments 58-year-old male with a known history of diabetes mellitus type 2, hypertension, peripheral neuropathy initially presented to the hospital with generalized weakness cough with a high blood sugar about 800 found to have 1. Generalized weakness and lethargy suspect secondary to uncontrolled hyperglycemia 2. Uncontrolled hyperglycemia in the setting of diabetes mellitus type 2 3. Acute kidney injury suspected secondary to vasomotor nephropathy 4. Dizziness secondary to uncontrolled hyperglycemia resolved 5. Right upper extremity numbness, acute CVA has been ruled out -patient's hemoglobin A1c is more than 11, start glipizide, insulin Lantus, moderate dose sliding scale -diabetic education -discharge plan MICHAEL PERRY May 24, 2024 00:32 MODE GIORDANO MD May 24, 2024 16:26
[2024-05-24 06:12] LABS: Triglycerides 146 mg/dL (< 150)
[2024-05-24 06:14] LABS: Cholesterol 197 mg/dL (< 200); HDL Cholesterol 45 mg/dL (40-59)
[2024-05-24 06:17] LABS: LDL Cholesterol 118 mg/dL (< 100)
[2024-05-24] MEDS ORDERED: GABA300T4 PO (08:02)
[2024-05-24] MEDS: HYDROcodone-ACET 5/325MG TAB PO PRN (08:51)
[2024-05-24] MEDS: ASPirin 81 mg TAB PO SCH (08:52)
[2024-05-24] MEDS: FAMOTIDINE 20 MG TAB PO SCH (08:52)
--- NOTE | 2024-05-24 11:49 | DVH ---
EXAMINATION: MRI BRAIN HEAD WO CONTRAST INDICATION: tia COMPARISON: CT HEAD WITHOUT CONTRAST on DOS: 05/23/24 TECHNIQUE: Multiplanar, multisequence magnetic resonance imaging of the brain was performed without the use of i ntravenous contrast. FINDINGS: No evidence of acute or remote infarct. No intracranial hemorrhage. No mass effect. There is periventricular/deep white matter T2/FLAIR hyperintensity is nonspecific, but most commonly associated with chronic microvascular disease. The ventricles and sulci are normal in size for age. Clear basal cisterns. Flow voids in the major intracranial vessels are maintained. No abnormality of the orbits. Paranasal sinuses and mastoid air cells are clear. No abnormality of the visualized osseous structures and extracranial soft tissues. IMPRESSION: No acute infarct, intracranial hemorrhage, mass effect, or hydrocephalus.
[2024-05-24] MEDS: ATORVASTATIN 20 MG TAB PO SCH (21:22)
[2024-05-24] MEDS: glipiZIDE 5 MG TAB PO ONE (21:22)
[2024-05-24] MEDS: INSULIN LANTUS (GLARGINE) 1 /0.01ml (100units/ml) SC SCH (21:23)
[2024-05-25] VITALS (8 sets, daily range): BP systolic 133–161; BP diastolic 74–88; PULSE 59–86; RESP 16–19; TEMP 97.7–98.3; O2SAT 94–98
[2024-05-25 02:15] LABS: COVID19 ANTIGEN SOFIA FIA NEGATIVE (NEGATIVE)
[2024-05-25 02:17] LABS: Rapid Influenza A Negative (Negative)
[2024-05-25 02:26] LABS: Rapid Influenza B Positive (Negative)
[2024-05-25] MEDS: glipiZIDE 5 MG TAB PO SCH (06:16)
[2024-05-25 10:12] LABS: Hepatitis C Antibody Negative (Negative)
[2024-05-25 11:30] LABS: Hepatitis B Surface Antigen Negative (Negative)
--- NOTE | 2024-05-25 13:51 | DVHSR ---
APPROVED REPORT EXAM: LIMITED Two-dimensional and M-mode echocardiogram with Doppler and color Doppler. Blood Pressure: 154/72 mmHg INDICATION CVA/TIA: RISK FACTORS Obesity: Height: 5'9, Weight: 278 DIMENSIONS LVDd4.5 (3.8-5.7cm)LA (2D)4.5 (1.9-4.0cm)Aortic Root3.5 (2.0-3.7cm) LVDs3.1 (2.5-4.0cm)LA (MM) (1.9-4.0cm)Aortic Cusp Exc1.7 (1.5-2.0cm) EF (%) 60.0 (55-70%)Rt. Atrium (1.9-4.0cm)Asc. Aorta3.2 cm IVSd1.2 (0.7-1.1cm)RV (D) (1.8-2.4cm) PWd1.1 (0.7-1.1cm) Mitral Valve MitralMitral Stenosis E wave0.77m/sMV Mean GR.mmHg A wave0.79m/sMV Peak GR.mmHg E/A ratio1.02D MVAcm2 DECEL [id number] 1/2 Timems Aortic Valve Aortic ValveAortic Stenosis V10.98m/Cuhck Mean GR.4mmHg V21.26m/Chuck Peak GR.6mmHg LVOT Diameter2.1 (1.8-2.4cm)Doppler AVA2.69cm2 Pulmonic Valve V21.02m/s Other Information Quality : LimitedRhythm : Technically limited study due to body habitus.patient position. Conclusion Sinus rhythm. Left atrial enlargement concentric LVH. Valves appear to be structurally normal. 65% ejection fraction with normal RV function Mild TR. No pericardial effusion masses or vegetations.
--- NOTE | 2024-05-25 16:34 | DVHPN2 ---
Subjective Overnight events noted. Patient has a flu-like symptoms influenza B is positive Tamiflu has been started. 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 Medications Current Medications Medications Dose Ordered Sig/Isis Route Start Time Stop Time Status Last Admin Dose Admin Diagnostic Test (Pha) 1 strip ACHS 05/23/24 22:00 05/25/24 11:50 1 STRIP Insulin Human Regular ACHS SC 05/23/24 22:00 05/25/24 11:51 4 UNITS Dextrose 50 ml UD PRN IV 05/23/24 21:15 Ondansetron HCl 4 mg Q6HPRN PRN IV 05/23/24 22:30 Atorvastatin Calcium 40 mg HS PO 05/24/24 22:00 05/24/24 21:22 40 MG Aspirin 81 mg DAILY PO 05/24/24 10:00 05/25/24 09:24 81 MG Acetaminophen/ Hydrocodone Bitart 1 tab Q6HPRN PRN PO 05/23/24 22:30 05/24/24 21:29 1 TAB Acetaminophen 650 mg Q6HPRN PRN PO 05/23/24 22:30 Famotidine 20 mg DAILY PO 05/24/24 10:00 05/25/24 09:24 20 MG Insulin Glargine 20 units HS SC 05/24/24 22:00 05/24/24 21:23 20 UNITS Glipizide 5 mg QAM PO 05/25/24 07:00 05/25/24 06:16 5 MG Oseltamivir Phosphate 75 mg Q12HR PO 05/25/24 16:30 05/30/24 16:29 UNV Laboratory Results Laboratory Tests 05/23/24 12:17 05/23/24 21:32 Urinalysis Test 05/23/24 13:09 Urine Color Light-yellow (Yellow) Urine Clarity Clear (Clear) Urine pH 5.5 (5.0-9.0) Urine Specific [place] 1.032 (1.001-1.035) Urine Protein Trace (Negative) H Urine Ketones Trace (Negative) Urine Blood Negative /uL (Negative) Urine Nitrite Negative (Negative) Urine Bilirubin Negative (Negative) Urine Urobilinogen Normal mg/dL (Negative) Urine Leukocyte Esterase Negative /uL (Negative) Urine RBC 1 /hpf (0 - 3) Urine WBC <1 /hpf (0 - 3) Urine Squamous Epithelial Cells Few /hpf (<5) Urine Bacteria None seen /hpf (None Seen) Urine Glucose 4+ mg/dL (Normal) H Assessment/Plan Assessment/Plan 58-year-old male with a known history of diabetes mellitus type 2, hypertension, peripheral neuropathy initially presented to the hospital with generalized weakness cough with a high blood sugar about 800 found to have 1. Generalized weakness and lethargy suspect secondary to uncontrolled hyperglycemia 2. Uncontrolled hyperglycemia in the setting of diabetes mellitus type 2 3. Acute kidney injury suspected secondary to vasomotor nephropathy 4. Dizziness secondary to uncontrolled hyperglycemia resolved 5. Right upper extremity numbness, acute CVA has been ruled out 6. Influenza B positive -droplet isolation, add Tamiflu, continue long-acting insulin, discharge plan Plan discussed with: Patient My Orders Orders - MODE GIORDANO MD Procedure Category Date Status Time Oseltamivir 75mg PHA 05/25/24 Logged Capsule (Tamiflu 75mg 16:30 Date of Service: May 25, 2024 Billing Provider: MODE GIORDANO MD Common Visit Codes: NOT BILLABLE MODE GIORDANO MD May 25, 2024 16:34
[2024-05-25] MEDS: OSELTAMIVIR 75 MG CAP PO SCH (17:48)
[2024-05-26 01:00] VITALS: BP 153/86; PULSE 68; RESP 20; TEMP 97.6; O2SAT 94
[2024-05-26 05:00] VITALS: BP 133/64; PULSE 54; RESP 20; TEMP 97.4; O2SAT 96
[2024-05-26 08:00] VITALS: PULSE 65
--- NOTE | 2024-05-26 08:44 | ECG ---
[facility] Test Date: 2024-05-23 Test Time: 12:18:58 Pat Name: AILEEN ARAMBULA Department: ER Room: [facility]2T A Gender: M Radiation Oncology Manager: MARIA ELENA : 1965 Requested By: JOSIAH ZELAYA Order Number: [id number] Reading MD: Serafin Madera Measurements Intervals [place] Rate: 117 P: 44 NH: 146 QRS: -75 QRSD: 133 T: 30 QT: 331 QTc: 462 Interpretive Statements Sinus tachycardia Probable left atrial enlargement Right bundle branch block Inferior infarct, old Electronically Signed On 05-26-2024 12:38:52 PST by Serafin Madera Please click the below link to view image of tracing.
[2024-05-26 09:00] VITALS: BP 152/95; PULSE 78; RESP 20; TEMP 98; O2SAT 97
[2024-05-26 13:00] VITALS: BP 142/89; PULSE 84; RESP 20; TEMP 98.4; O2SAT 95
[2024-05-26 15:17] LABS: Chloride 104 mmol/L (98-107); Potassium 4.1 mmol/L (3.5-5.1)
[2024-05-26 15:18] LABS: Anion Gap 6 (5-15); Carbon Dioxide 26 mmol/L (20-31)
[2024-05-26 15:19] LABS: Calcium 9.5 mg/dL (8.7-10.4)
[2024-05-26 15:24] LABS: Blood Urea Nitrogen 12 mg/dL (9-23)
[2024-05-26 15:25] LABS: Sodium 136 mmol/L (136-145)
[2024-05-26 15:26] LABS: Glucose 231 mg/dL (74-106)
[2024-05-26] MEDS ORDERED: GLIP5TAB21 PO (15:28)
[2024-05-26] MEDS ORDERED: INSLANTI SC (15:28)
[2024-05-26] MEDS ORDERED: BLOO1KIT60 XX (15:31)
[2024-05-26] MEDS ORDERED: TAMIFLU PO (15:31)
[2024-05-26] MEDS ORDERED: ALCOPAD63 XX (15:31)
[2024-05-26] MEDS ORDERED: INSU-567 XX (15:31)
[2024-05-26] MEDS ORDERED: LANC-347 XX (15:31)
[2024-05-26] MEDS ORDERED: METF-370 PO (15:32)
--- NOTE | 2024-05-26 15:35 | DVHDS2 ---
Discharge Summary Date of Admission May 23, 2024 at 22:17 Date of Discharge: May 26, 2024 Labs/Diagnostic Data: Laboratory Results Test 05/26/24 14:30 05/26/24 11:43 05/24/24 21:00 05/24/24 05:02 Sodium Level 136 mmol/L (136-145) Potassium Level 4.1 mmol/L (3.5-5.1) Chloride Level 104 mmol/L (98-107) Carbon Dioxide Level 26 mmol/L (20-31) Anion Gap 6 (5-15) Blood Urea Nitrogen 12 mg/dL (9-23) Creatinine 1.20 mg/dL (0.700-1.30) Glomerular Filtration Rate Calc 69 mL/min (>90) BUN/Creatinine Ratio 10.0 (10.0-20.0) Serum Glucose 231 mg/dL (74-106) Calcium Level 9.5 mg/dL (8.7-10.4) POC Glucose 136 mg/dl (70-106) Influenza Type A Antigen Negative (Negative) Influenza Type B Antigen Positive (Negative) SARS-CoV-2 Antigen (Rapid) Negative (NEGATIVE) Hemoglobin A1c 11.5 % A1C (<5.7) Triglycerides Level 146 mg/dL (< 150) Cholesterol Level 197 mg/dL (< 200) LDL Cholesterol 118 mg/dL (< 100) HDL Cholesterol 45 mg/dL (40-59) Hepatitis B Surface Antigen Negative (Negative) Hepatitis C Antibody Negative (Negative) Test 05/23/24 13:09 05/23/24 12:17 Urine Color Light-yellow (Yellow) Urine Clarity Clear (Clear) Urine pH 5.5 (5.0-9.0) Urine Specific [place] 1.032 (1.001-1.035) Urine Protein Trace (Negative) Urine Ketones Trace (Negative) Urine Blood Negative /uL (Negative) Urine Nitrite Negative (Negative) Urine Bilirubin Negative (Negative) Urine Urobilinogen Normal mg/dL (Negative) Urine Leukocyte Esterase Negative /uL (Negative) Urine RBC 1 /hpf (0 - 3) Urine WBC <1 /hpf (0 - 3) Urine Squamous Epithelial Cells Few /hpf (<5) Urine Bacteria None seen /hpf (None Seen) Urine Glucose 4+ mg/dL (Normal) White Blood Count 6.2 10^3/uL (4.4-10.8) Red Blood Count 5.17 10^6/uL (4.5-5.90) Hemoglobin 17.0 g/dL (13.5-17.5) Hematocrit 49.3 % (41.0-53.0) Mean Corpuscular Volume 95.4 fL (80.0-100.0) Mean Corpuscular Hemoglobin 32.8 pg (28.0-32.0) Mean Corpuscular Hemoglobin Concent 34.4 g/dL (32.0-36.0) Red Cell Distribution Width 14.6 % (11.8-14.3) Platelet Count 258 10^3/uL (140-450) Mean Platelet Volume 8.5 fL (6.9-10.8) Neutrophils (%) (Auto) 60.7 % (37.0-80.0) Lymphocytes (%) (Auto) 18.7 % (10.0-50.0) Monocytes (%) (Auto) 16.4 % (0.0-12.0) Eosinophils (%) (Auto) 3.4 % (0.0-7.0) Basophils (%) (Auto) 0.8 % (0.0-2.0) Neutrophils # (Auto) 3.7 10 ^3/uL (1.6-8.6) Lymphocytes # (Auto) 1.2 10 ^3/uL (0.4-5.4) Monocytes # (Auto) 1.0 10 ^3/uL (0-1.3) Eosinophils # (Auto) 0.2 10 ^3/uL (0-0.8) Basophils # (Auto) 0 10 ^3/uL (0-0.2) Nucleated Red Blood Cells 0.1 % Troponin I High Sensitivity 10 ng/L (</=54) B-Type Natriuretic Peptide 40.57 pg/mL (0-100) Other Laboratory Tests 05/26/24 14:30 05/23/24 12:17 Brief Hx & Hospital Course: 58-year-old male with a known history of diabetes mellitus type 2, hypertension, peripheral neuropathy initially presented to the hospital with generalized weakness cough with a high blood sugar about 800 found to have uncontrolled hyperglycemia in the setting of diabetes mellitus type 2. Patient hemoglobin A1c came back>11. Patient was given diabetic education and started on insulin Lantus. Patient was found to have influenza B positive treated with Tamiflu. Patient was being discharged under stable condition. Patient was acute kidney injury suspected secondary to vasomotor nephropathy has resolved. Patient was has been ruled out for acute CVA. Condition at Discharge: Stable Final Diagnosis/Problems List 1. Generalized weakness and lethargy suspect secondary to uncontrolled hyperglycemia 2. Uncontrolled hyperglycemia in the setting of diabetes mellitus type 2 3. Acute kidney injury suspected secondary to vasomotor nephropathy 4. Dizziness secondary to uncontrolled hyperglycemia resolved 5. Right upper extremity numbness, acute CVA has been ruled out 6. Influenza B positive Discharge Disposition: Home SNF Discharge Will this Physician continue t: No Discharge Instruct/Medications Diet: Cardiac 2g Na,low cholest Diet comment: 1999 ADA diet Activity: See Comment Activity comment: Droplet isolation for five more days Follow Up/Referral: Follow up with the PCP in 1-2 weeks Medications: Medication as reconciled. And prescribed. Discharge Statement: "Patient was advised to return to the ER or call 911 if any headaches, dizziness, shortness of breath, chest pain, abdominal pain, bleeding, fevers, or worsening of medical condition. Patient was counseled about treatment plan, medications, possible side effects, patientverbalized understanding. All questions were answered to the best of my ability. This discharge took greater then 30 minutes in planning, reviewing documentation, counseling the patient, and discussing with other team members." ASSESSMENT ASSESSMENT Assessment 58-year-old male with a known history of diabetes mellitus type 2, hypertension, peripheral neuropathy initially presented to the hospital with generalized weakness cough with a high blood sugar about 800 found to have 1. Generalized weakness and lethargy suspect secondary to uncontrolled hyperglycemia 2. Uncontrolled hyperglycemia in the setting of diabetes mellitus type 2 3. Acute kidney injury suspected secondary to vasomotor nephropathy 4. Dizziness secondary to uncontrolled hyperglycemia resolved 5. Right upper extremity numbness, acute CVA has been ruled out 6. Influenza B positive Date of Service: May 26, 2024 Billing Provider: MODE GIORDANO MD Common Visit Codes: NOT BILLABLE MODE GIORDANO MD May 26, 2024 15:35
[2024-05-26 17:00] VITALS: BP 146/76; PULSE 60; RESP 18; TEMP 98.1; O2SAT 96
[2024-05-26] MEDS: PNEUMOCOCCAL VACC POLYS 25 MCG/0.5 ML VIAL IM ONE (17:20)
== END 2024-05-26 17:59 | disposition home or self-care (01) | DRG 637 ==
LOC: ER 11:41 → TELE 22:17 → TELE-WESTW 05-24 01:59
PROVIDERS: ADMIT Nurse Practitioner Family; ATTEND Hospitalist
DX: E11.65 Type 2 diabetes mellitus with hyperglycemia (principal); N17.0 Acute kidney failure with tubular necrosis; G45.9 Transient cerebral ischemic attack, unspecified; J10.1 Influenza due to other identified influenza virus with other respiratory manifestations; E11.42 Type 2 diabetes mellitus with diabetic polyneuropathy; F17.210 Nicotine dependence, cigarettes, uncomplicated; I10 Essential (primary) hypertension; Z20.822 Contact with and (suspected) exposure to COVID-19; Z79.84 Long term (current) use of oral hypoglycemic drugs; Z82.49 Family history of ischemic heart disease and other diseases of the circulatory system
CPT/HCPCS: 36415; 70450; 70551; 71045; 80048; 80061; 81001; 82962; 83036; 83880; 84484; 85025; 86803; 87340; 87426; 87804; 93005; 93306; 99291; G0378; J1815